=== PATIENT | female | born 1985 | race American Indian/Alaskan Native ===

== ENCOUNTER 2018-12-03 06:16 | Day surgery (SDC) | payer BC, OTHER ==
[2018-12-03] MEDS ORDERED: ECOTRIN PO ONE (06:48)
[2018-12-03] MEDS ORDERED: NACL 0.9% 500 ML 500 ML IV SCH (07:00)
[2018-12-03 08:11] LABS: Basophils % (Auto) 0.5 % (0.0-1.8); Eosinophils # (Auto) 0.1 K/mm3 (0.0-0.4); Eosinophils % (Auto) 1.9 % (0.0-4.3); Hematocrit 30.4 % (30.3-42.9); Hemoglobin 9.7 gm/dl (10.1-14.3); Lymphocytes # (Auto) 2.1 K/mm3 (1.2-5.4); Lymphocytes % (Auto) 26.8 % (13.4-35.0); Mean Corpuscular HGB Conc 32 % (30-34); Mean Corpuscular Volume 75 fl (79-97); Monocytes # (Auto) 0.4 K/mm3 (0.0-0.8); Monocytes % (Auto) 5.4 % (0.0-7.3); Platelet Count 401 K/mm3 (140-440); Red Blood Count 4.03 M/mm3 (3.65-5.03); Red Cell Distribution Width 19.4 % (13.2-15.2)
[2018-12-03 08:24] LABS: BUN/Creatinine Ratio 16; Blood Urea Nitrogen 13 mg/dL (7-17); Calcium 9.2 mg/dL (8.4-10.2); Hemolysis Index 8
[2018-12-03 08:26] LABS: INR 0.86 (0.87-1.13); Partial Thromboplastin Time 22.8 Sec. (24.2-36.6)
[2018-12-03] MEDS ORDERED: HEPARIN/NS 5000 UNIT/500ML(CATH LAB) 1,000 ML IR ONE (10:57)
[2018-12-03] MEDS ORDERED: HEPARIN 10,000 UNITS/10 ML ONE (10:57)
[2018-12-03] MEDS ORDERED: SUBLIMAZE ONE (10:57)
[2018-12-03] MEDS ORDERED: CALAN ONE (10:58)
[2018-12-03] MEDS ORDERED: XYLOCAINE 2% INFILTRATI ONE (10:58)
[2018-12-03] MEDS ORDERED: NITROGLYCERIN SYRINGE 3 ML ONE (10:58)
[2018-12-03] MEDS: VERSED ONE ×2 (13:00→13:11)
--- NOTE | 2018-12-03 13:52 | Cardiac Catherization Report ---
INDICATION FOR PROCEDURE: The patient is a pleasant 33-year-old -[place] female recently diagnosed with lupus, recurrent chest pain despite normal stress test. She is very concerned about this. Discussed the options with her including continued medical management, cardiac CT, and so forth. She would like to proceed with a cardiac catheterization. Risks, benefits, and potential alternatives explained at length prior to informed consent. PROCEDURE IN DETAIL: The patient was brought to catheterization lab in a postabsorptive state, prepped and draped in sterile fashion. Antony's test in right hand was normal. A 2 mL of 2% lidocaine used to anesthetize the right wrist. A standard 6-Sami hydrophilic sheath used to cannulate the right radial artery via modified Seldinger technique. All exchanges performed to exchange a J-tip guidewire. JL3.5 catheter used to engage the left main. No dampening or vegetations Cineangiography performed in all projections. JR4 catheter was used to cross the aortic valve under fluoroscopic guidance. Left ventriculography performed in 30 MCKEON and 30 DESEAN projections via hand injections, catheter flushed. Manual pullback performed with continuous pressure monitoring. Catheter used to engage the right coronary. No dampening or vegetations. Cineangiography performed in all projections. Next, catheter removed from the body of wire, sheath removed. Manual pressure used to achieve hemostasis. DATA: Aortic pressure is 130/70, LV pressure is 130, LVP of 10 mmHg. Left ventriculography reveals normal systolic performance with estimated ejection fraction of 55-60%. No evidence of aortic stenosis. CORONARY ANATOMY: This is a right dominant system. Right coronary is a large vessel, courses AV groove, distally bifurcates in the posterior and posterolateral branches. No discrete stenosis noted. Left main without significant disease, bifurcates left anterior descending and left circumflex. Left circumflex is a large vessel, courses AV groove, gives off an OM trunk. No significant disease in left circumflex system. Next, LAD is a large vessel, courses anterior intergroove, wraps around the apex, no significant disease in LAD or diagonal system. CONCLUSIONS: 1. No angiographic evidence of significant epicardial coronary disease in this right dominant system. 2. Normal left ventricular systolic performance, estimated ejection fraction of 55-60%. 3. No evidence of aortic stenosis. 4. Normal LVEDP. The patient is clinically stable, chest pain free. Standard radial care. Results of the procedure were explained at length with the patient and family. All questions and concerns were addressed. Follow up with me in the office. JOB# [id number]/[id number]
[2018-12-03 14:50] VITALS: BP 110/67
--- NOTE | 2018-12-06 09:53 | Short Stay Summary ---
Short Stay Documentation Date of service: 12/03/18 - History H&P: obtained from office - Allergies and Medications Current Medications: Allergies duloxetine [From Cymbalta] Allergy (Verified 12/03/18 06:57) TREMORS Home Medications Medication Instructions Recorded Confirmed Last Taken Type Acetaminophen [Arthritis Pain 650 mg PO DAILY 12/03/18 12/03/18 12/01/18 History Relief] LORazepam [Ativan] 0.5 mg PO DAILY 12/03/18 12/03/18 11/27/18 History traMADol [Ultram] 50 mg PO Q6HR PRN 12/03/18 12/03/18 12/01/18 History - Brief post op/procedure progress note Date of procedure: 12/03/18 Pre-op diagnosis: chest pain Post-op diagnosis: same Procedure: [facility]- see dictated cath report Anesthesia: local Estimated blood loss: none Condition: stable - Disposition Condition at discharge: Good Disposition: [id number] TO HOME OR SELFCARE - Discharge Diagnoses (1) Normal coronary arteries Status: Chronic Short Stay Discharge Plan Activity: advance as tolerated Wound: open to air, keep clean and dry, per your surgeon's advice Follow up with: KISHA CONSTANTINO MD [Primary Care Provider] - 7 Days Forms: CardCath PCI D/C Instructions
== END 2018-12-03 16:35 | disposition home or self-care (01) ==
LOC: CATHLABREC 06:16
PROVIDERS: ATTEND Internal Medicine
DX: R07.89 Other chest pain (principal); G47.30 Sleep apnea, unspecified; K21.9 Gastro-esophageal reflux disease without esophagitis; M79.7 Fibromyalgia; F32.9 Major depressive disorder, single episode, unspecified; F41.9 Anxiety disorder, unspecified; Z98.890 Other specified postprocedural states; Z98.51 Tubal ligation status; Z79.899 Other long term (current) drug therapy; Z87.891 Personal history of nicotine dependence; Z86.2 Personal history of diseases of the blood and blood-forming organs and certain disorders involving the immune mechanism; Z88.8 Allergy status to other drugs, medicaments and biological substances
CPT/HCPCS: 36415; 80048; 85025; 85610; 85730; 93005; 93010; 93458; 99156; 99157; C1887; C1894; J1644; J7040; J2250; J3010; Q9967